=== PATIENT | male | born 1980 | race Caucasian/White ===

== ENCOUNTER 2020-05-12 11:46 | Day surgery (SDC) | payer OTHER ==
[~2020-05-12] VITALS: Ht 180.3 cm; Wt 100.0 kg
[~2020-05-12 11:46] MED LIST: HUMIRA40 MG/0.1 SUB-Q; LIPITOR10 MG PO; NORCO 5-325 TA1 EACH PO; VITAMIN D5000 UNIT PO
--- NOTE | 2020-05-12 13:42 | NUR ---
05/12/20 1342 Christine Maciel 1339- PT ARRIVES TO PACU TALKING. PT REPORTS NO PAIN OR NAUSEA AND FALLS TO SLEEP. RESP EVEN AND UNLABORED. OXYGEN SAT HIGH 90'S TO 100% ON 3L VIA NC.
--- NOTE | 2020-05-13 10:40 | OR ---
[facility] [address] [place], [place] [address] Signed DATE OF OPERATION: 05/12/2020 SURGEON: Jenna Nuno MD PREOPERATIVE DIAGNOSES: 1. Persistent episodic dysphagia and clinical esophageal spasm. 2. Interscapular pain worsened with intake of bread. POSTOPERATIVE DIAGNOSES: Chronic distal esophagitis with moderate-sized hiatal hernia. PROCEDURE: Esophagogastroduodenoscopy with biopsy. ANESTHESIA: Intravenous sedation, fentanyl 100 mcg and Versed 5 mg. INDICATIONS: This 40-year-old white man was referred to me in September for complaints of interscapular pain, epigastric pain, and occasions of dysphagia, mostly to bread and often with associated spasm type symptoms. Due to the COVID pandemic and other issues, delay of his upper endoscopy has been undertaken. The patient takes Tums, which were of no benefit. He has not been on a PPI medication. He is admitted at this time to undergo upper endoscopy to better characterize the problem specifically to assess for peptic disease. He understands the risks of bleeding, infection, and perforation related to upper endoscopy and wished to proceed. FINDINGS: Distal esophagitis was noted with a small Schatzki's ring. There was no evidence of the eosinophilic esophagitis endoscopically. A moderate-sized hiatal hernia was noted as well. Stomach and duodenum were normal. CLOtest was negative 15 minutes post procedure. DESCRIPTION OF PROCEDURE: The patient was brought to the endoscopy suite and placed in the lateral decubitus position after undergoing topical lidocaine hypopharyngeal anesthesia. He was given intravenous sedation to the point of slurred speech and nystagmus with full cardiopulmonary monitoring. A bite block was placed. An Olympus video upper endoscope was passed in the hypopharynx. The vocal cords were visualized and found to be normal. The scope was advanced to the esophagus throughout its length, it was normal except in Electronically Signed By: JENNA NUNO MD 05/13/20 1040 PATIENT NAME: DOUGLAS CLAUDIO OPERATIVE REPORT DATE OF : 80 REPORT #: [id number] PHYSICIAN: JENNA NUNO MD PCP: GUILLERMINA ZAVALETA PA-C REPORT IS CONFIDENTIAL AND NOT TO BE RELEASED WITHOUT AUTHORIZATION [facility] [address], [place] [address] Signed the distal portion where there was mild chronic inflammatory change and a small Schatzki's ring. Scope was passed into the stomach without impediment. The stomach including the antrum showed normal rugal folds and motility. The pylorus was normal, scope was passed through into the duodenum, which was normal. Biopsies were taken of the duodenum to assess for celiac disease. The scope was withdrawn. A biopsy was then taken of the antrum for both KANE and pathologic testing. Retroflexed view showed a moderate-sized hiatal hernia. The scope was withdrawn to the distal esophagus allowing for multiple biopsies there. There was no evidence of Bentley epithelium. The scope was withdrawn and biopsies then taken of midesophagus to assess for eosinophilic esophagitis. Further withdrawal showed no other abnormality. The scope was removed. The patient was taken to the recovery room in good condition. CONCLUDING DIAGNOSIS: Esophagitis related to hiatal hernia. PLAN: We will prescribe Prilosec 20 mg p.o. daily and assess its clinical result. He will return to see me in approximately 6-8 weeks. Jenna Nuno MD JM/MODL /[id number] cc: Guillermina Zavaleta PA-C Copies: GUILLERMINA ZAVALETA PA-C ~ Electronically Signed By: JENNA NUNO MD 05/13/20 1040 PATIENT NAME: DOUGLAS CLAUDIO OPERATIVE REPORT DATE OF : 80 REPORT #: [id number] PHYSICIAN: JENNA NUNO MD PCP: GUILLERMINA ZAVALETA PA-C REPORT IS CONFIDENTIAL AND NOT TO BE RELEASED WITHOUT AUTHORIZATION
--- NOTE | 2020-05-15 12:54 | PATH ---
[facility] [address] [facility] [place] [address] Signed SPECIMEN(S): A DUODENUM SPECIMEN(S): B ANTRUM/PYLORUS SPECIMEN(S): C LOWER ESOPHAGUS SPECIMEN(S): D MIDDLE ESOPHAGUS SPECIMEN SOURCE: A. DUODENUM B. ANTRUM/PYLORUS C. LOWER ESOPHAGUS D. MIDDLE ESOPHAGUS CLINICAL HISTORY: Esophagogastroduodenoscopy. RUQ pain, esophageal dysphagia, retrosternal pain. MICROSCOPIC DESCRIPTION: Histologic sections of all submitted blocks are examined by light microscopy. These findings, together with the gross examination, support the pathologic diagnosis. FINAL PATHOLOGIC DIAGNOSIS: A. Duodenum: - Benign duodenal mucosa, negative for specific diagnostic abnormality. B. Antrum/pylorus: - Benign gastric-type mucosa, negative for evidence of Helicobacter organisms on routine HE stained sections. C. Lower esophagus biopsy: - Benign squamocolumnar junction with rare columnar type mucosa containing a single goblet cell (see comment). - Negative for increased epithelial eosinophils. D. Middle esophagus: - Squamocolumnar junction type mucosa with specialized intestinal (goblet cell) metaplasia. - Negative for increased epithelial eosinophils. - Negative for dysplasia. COMMENT: The specimen submitted as "lower esophagus" may represent the mid esophagus as there is very scant columnar-type epithelium while the specimen D (mid esophagus) contains substantial columnar-type mucosa with the associated specialized intestinal metaplasia. There is no evidence of eosinophilic esophagitis on these sections. The presence of goblet cell metaplasia is noted; however, dysplasia PATIENT NAME: DOUGLAS CLAUDIO PATHOLOGY DATE OF : [birth year] REPORT #: [id number] PHYSICIAN: SWATI PATHOLOGY PCP: BLANCA MERINO PA-C REPORT IS CONFIDENTIAL AND NOT TO BE RELEASED WITHOUT AUTHORIZATION [facility] [address] [place], [place] [address] Signed is not identified. JVR:[facility]:C2NR GROSS DESCRIPTION: Four specimens are received in four containers, labeled "AO." A. The specimen, labeled "AO, 1," and designated on the requisition "duodenum," is received in formalin and consists of one sutton soft tissue fragment that measures 0.3 cm in greatest dimension. The specimen is entirely submitted in cassette (A1). B. The specimen, labeled "AO, 2," and designated on the requisition "antrum/pylorus," is received in formalin and consists of two sutton soft tissue fragments that measure 0.2-0.3 cm in greatest dimension. The specimen is entirely submitted in cassette (B1). C. The specimen, labeled "AO, 3," and designated on the requisition "lower esophagus," is received in formalin and consists of five sutton soft tissue fragments that measure 0.3-0.4 cm in greatest dimension. The specimen is entirely submitted in cassette (C1). D. The specimen, labeled "AO, 4," and designated on the requisition "middle esophagus," is received in formalin and consists of scanty sutton soft tissue fragments that measure 0.3 x 0.2 x 0.1 cm in aggregate. The specimen is filtered, inked with eosin, and entirely submitted in cassette (D1). AT (under the direct supervision of a pathologist) The Gross Description was prepared using a voice recognition system. The report was reviewed for accuracy; however, sound-alike word errors, addition and/or deletions may occur. If there is any question about this report, please contact Client Services. PERFORMING LABORATORY: The technical component was performed by [facility], [address] [place] [id number] (Client Service Representative: Rose Cohen MD; CLIA# [id number]). The professional interpretation was performed by [facility], [facility], [address] [place] [address]. Diagnostician: Alexi Del Castillo MD Pathologist Electronically Signed 05/15/2020 Copies: PATIENT NAME: DOUGLAS CLAUDIO PATHOLOGY DATE OF : 80 REPORT #: [id number] PHYSICIAN: SWATI LUND PCP: BLANCA MERINO PA-C REPORT IS CONFIDENTIAL AND NOT TO BE RELEASED WITHOUT AUTHORIZATION [facility] [address] [facility] [place] [place] [address] Signed ~ PATIENT NAME: ANTIONEEDWINADOUGLAS MARIA PATHOLOGY DATE OF : 80 REPORT #: [id number] PHYSICIAN: SWATI LUND PCP: BLANCA MERINO PA-C REPORT IS CONFIDENTIAL AND NOT TO BE RELEASED WITHOUT AUTHORIZATION
== END 2020-05-12 14:20 | disposition home or self-care (01) ==
LOC: OPS 11:46 → DS 11:46 → OPS 13:00 → DS 13:00 → OPS 14:20
PROVIDERS: ATTEND Surgery
PROC: 0DB68ZX Excision of Stomach, Via Natural or Artificial Opening Endoscopic, Diagnostic (ICD-10-PCS; 2020-05-12)
PROC: 0DB28ZX Excision of Middle Esophagus, Via Natural or Artificial Opening Endoscopic, Diagnostic (ICD-10-PCS; 2020-05-12)
PROC: 0DB38ZX Excision of Lower Esophagus, Via Natural or Artificial Opening Endoscopic, Diagnostic (ICD-10-PCS; 2020-05-12)
PROC: 0DB98ZX Excision of Duodenum, Via Natural or Artificial Opening Endoscopic, Diagnostic (ICD-10-PCS; principal; 2020-05-12 13:00)
DX: K20.90 Esophagitis, unspecified without bleeding (principal); K44.9 Diaphragmatic hernia without obstruction or gangrene; K22.2 Esophageal obstruction; K22.70 Barrett's esophagus without dysplasia; L40.9 Psoriasis, unspecified; E78.5 Hyperlipidemia, unspecified
CPT/HCPCS: 88305; 99153; G0500; J2250; J3010; J7121

== ENCOUNTER 2023-06-09 05:58 | Day surgery (SDC) | payer OTHER ==
[~2023-06-09] VITALS: Ht 180.3 cm; Wt 100.0 kg
[~2023-06-09 05:58] MED LIST changes: +CIMZIA400 MG SUB-Q; +LACTATED RINGER'S 1,000 ML IV SCH; +OMEPRAZOLE20 MG PO; +STRESS FORMULA1 EAC8 PO; +VIT D2-K1 20-1259 ML PO
[2023-06-09 06:10] VITALS: BP 124/69
[2023-06-09] MEDS ORDERED: ECHINACEA EXTR125 MG PO (06:13)
[2023-06-09] MEDS ORDERED: COSENTYX P150 MG/11 SUB-Q (06:14)
[2023-06-09] MEDS ORDERED: LIDOCAINE HCL 1% 5 ML SDV INJ ONE (07:00)
[2023-06-09] MEDS ORDERED: CEFAZOLIN SODIUM 2 GM/20 ML SYR IV SCH (07:00)
[2023-06-09] MEDS ORDERED: IBLOOD GLUCOSE TEST STRIP 1 EA TEST VI PRN ×2 (07:00→08:15)
[2023-06-09] MEDS ORDERED: HEParin SOD (PORCINE) 5,000 UNIT/0.5 ML SYR SUB-Q SCH (07:00)
[2023-06-09] MEDS ORDERED: fentaNYL citrate 250 MCG/5 ML VIAL ONE (07:03)
[2023-06-09] MEDS ORDERED: LIDOCAINE HCL 2% 5 ML SDV ONE (07:03)
[2023-06-09] MEDS ORDERED: DEXAMETHASONE SOD PHOS 4 MG/ML VIAL ONE (07:03)
[2023-06-09] MEDS ORDERED: KETOROLAC TROMETHAMINE 30 MG/ML VIAL ONE (07:03)
[2023-06-09] MEDS ORDERED: MIDAZOLAM HCL 2 MG/2 ML VIAL ONE (07:03)
[2023-06-09] MEDS ORDERED: ACETAMINOPHEN 1,000 MG/100 ML VIAL ONE (07:03)
[2023-06-09] MEDS ORDERED: ondansetron HCL 4 MG/2 ML VIAL ONE (07:03)
[2023-06-09] MEDS ORDERED: propofoL 200 MG/20 ML VIAL ONE (07:03)
--- NOTE | 2023-06-09 07:20 | NUR ---
ROUNDS. PT AND SLATE HANDLER EXHIBIT SITUATIONALLY APPROPRIATE RESPONSES; EXPRESS CONFIDENCE IN CARE; DECLINE AUDIBLE PRAYER IN ROOM. PROVIDED NUTRITION MANAGER EDUCATION; PROVIDED HOSPITALITY; PROVIDED SILENT PRAYER.
[2023-06-09] MEDS ORDERED: NALOXONE HCL 0.4 MG SYR IV PRN (08:15)
[2023-06-09] MEDS ORDERED: PROCHLORPERAZINE EDISYLATE 10 MG/2 ML VIAL IV PRN (08:15)
[2023-06-09] MEDS ORDERED: ondansetron HCL 4 MG/2 ML VIAL IV PRN (08:15)
[2023-06-09] MEDS ORDERED: droPERidol 5 MG/2 ML VIAL IV PRN (08:15)
[2023-06-09] MEDS ORDERED: HYDROmorphone HCL 1 MG/ML SYR IV PRN (08:15)
[2023-06-09] MEDS ORDERED: fentaNYL citrate 100 MCG/2 ML VIAL IV PRN (08:15)
[2023-06-09] MEDS ORDERED: LACTATED RINGER'S 1,000 ML IV ONE (08:26)
[2023-06-09] MEDS ORDERED: OXYCODONE/APAP 7.5/325 TAB PO PRN (09:45)
[2023-06-09] MEDS ORDERED: ACETAMINOPHEN500 MG PO (09:45)
[2023-06-09] MEDS ORDERED: OXYCODON-ACETA1 EAC2 PO (09:45)
[2023-06-09] MEDS ORDERED: LACTATED RINGER'S 1,000 ML IV SCH (09:45)
[2023-06-09] MEDS ORDERED: ACETAMINOPHEN 500 MG TAB PO PRN (09:45)
[2023-06-09] MEDS ORDERED: IBUPROFEN600 MG PO (09:45)
[2023-06-09] MEDS ORDERED: IBUPROFEN 600 MG TAB PO PRN (09:45)
[2023-06-09 09:54] VITALS: BP 121/53
--- NOTE | 2023-06-09 09:57 | NUR ---
LAYLA 0955: PT IS BACK TO DS FROM PACU. HE HAS RETURNED TO HIS BASELINE. HE HAS APPLE SAUCE, WATER, AND COFFEE ON BEDSIDE TABLE. CALL LIGHT WITHIN REACH. HE IS REQUESTING YOGURT. DC CRITERIA IS REVIEWED.
--- NOTE | 2023-06-09 10:14 | NUR ---
06/09/23 Heidy4 Noy Kim 0925- PT PRESENTS TO PACU, SEMI DOSS POSITION. OPA IN PLACE, REQUIRING JAW THRUST TO MAINTAIN AIRWAY, O2 AT 6L PER MASK. PT NON REACTIVE TO STIMULUS, ALL MONITORS IN PLACE. PT HAS DRESSING IN PLACE RIGHT GROIN, ABD SOFT NON DISTENDED. 0930- PT REACTIVE TO VERBAL AND TACTILE STIMULUS. FOLLOWS COMMANDS TO REMOVE OPA. O2 REMAINS IN PLACE, PT OPENS EYES SLIGHTLY, REORIENTED TO TIME AND PLACE. 0931- PT REMOVES O2 TO ITCH FACE, WILL LEAVE ON ROOM AIR. PT THEN FALLS BACK TO SLEEP. WILL CONTINUE TO MONITOR. 0945- PT WAKES EASILY TO VERBAL STIMULI, REPORTS PAIN IS 1-2/10, TOLERABLE. DENIES NAUSEA. STATES "I'M STARVING". PLAN TO TAKE PT BACK TO DAY SURGERY. PT ENCOURAGED TO DEEP BREATH AND COUGH AND EDUCATED ON SPLINTING GROIN INCISION. 0955- PT BACK TO DAY SURGERY VIA BED. ALERT BUT DROWSY. ANSWERS QUESTIONS APPROPRIATELY. LR CONTINUES TO INFUSE TO RFA IV. NO SIGNS OF DISTRESS. DRESSING IN PLACE AND ASSESSED WITH BARRETT HESS. REPORT TO BARRETT HESS AT BEDSIDE, CARE OF PT TURNED OVER AT THIS TIME.
[2023-06-09 10:54] VITALS: BP 126/65
--- NOTE | 2023-06-09 10:55 | NUR ---
LE 1050: PT IS TOLERATING LIQUIDS, APPLE SAUCE, AND YOGURT. HE IS HELPED UP OOB WITH STAND BY ASSIST TO THE BATHROOM. WHERE HE IS ABLE TO VOID DARK YELLOW URINE, 200ML. LE 1055: HE INDICATES THAT HE IS READY TO GO HOME.
--- NOTE | 2023-06-09 11:11 | NUR ---
LE 1055: PT AND ARE GIVEN VERBAL AND WRITTEN DC INSTRUCTIONS. THEY BOTH VERBALIZE UNDERSTANDING. QUESTIONS ARE ASKED AND ANSWERED. PT IS EDUCATED ON HOW TO BEST DRESS HIMSELF AND TO OPEN HIS CURTAIN WHEN READY. LE 1105: PT IS TAKEN TO PERSONAL VEHICLE VIA WC. HE IS ABLE TO TRANSFER HIMSELF FROM WC TO PERSONAL VEHICLE.
--- NOTE | 2023-06-12 12:16 | OR ---
[facility] [address] [place], [place] [address] Signed DATE OF OPERATION: 06/09/2023 SURGEON: Jenna Nuno MD PREOPERATIVE DIAGNOSIS: Recurrent right inguinal hernia (clinical diagnosis). POSTOPERATIVE DIAGNOSIS: Largely intact previous mesh repair with small internal ring defect. PROCEDURES: 1. Groin exploration with mobilization of cord. Full examination of the inguinal floor. 2. Closure of internal ring defect with interrupted 2-0 Prolene. 3. Exploration for femoral hernia (negative). ANESTHESIA: General LMA, Reagan Antony, OVERLOCK SEWING MACHINE OPERATOR and local 10 mL of 0.25% Marcaine with epinephrine. INDICATION: This 43-year-old white man is a patient of FELIBERTO Contreras. He was referred with presumed recurrent right inguinal hernia. He underwent inguinal hernia repair by Dr. Silas Johnson in 2015, as well as umbilical hernia in 2021. The patient had noted pain in the right groin. Palpation of the area described possible hernia. He had no obstructive symptoms, specifically no constipation, urinary outlet obstruction, or other problem. He was noted in May of this year to have testicular pain and an ultrasound performed to assess for hernia. Clinical examination showed some tenderness in the right groin, somewhat lateral in the incision, though the patient describe medial pain and bulge. Review of operative note from 2015 showed implantation of a Ventralex mesh 6.4 cm in an underlay technique was then undertaken. He is admitted at this time to undergo exploration of the groin, repair of presumed recurrent hernia and other indicated procedures. FINDINGS: As expected, external oblique was densely adherent to the underlying cord and other structures. It was freed from the cord structures and underlying the soft tissue without impediment to the cord or its function or vascular supply. The cord was mobilized from the floor well. The mesh appeared to extend laterally outside the cord and was well intact. Iliohypogastric nerve was identified and not encumbered by the mesh. The floor of the canal itself was largely intact related to the repair. At the internal ring, was a slight defect no more than the tip of the finger. Whether this Electronically Signed By: JENNA NUNO MD 06/12/23 1216 PATIENT NAME: DOUGLAS CLAUDIO OPERATIVE REPORT DATE OF : 80 REPORT #: [id number] PHYSICIAN: JENNA NUNO MD PCP: GUILLERMINA ZAVALETA PA-C REPORT IS CONFIDENTIAL AND NOT TO BE RELEASED WITHOUT AUTHORIZATION [facility] [address] [place], [place] [address] Signed accounts for his symptoms or not is uncertain. The internal ring was plicated and the shelving edge of Poupart's ligament and the tendon of the transversus abdominis with the incorporated mesh was secured as well. Exploration was undertaken inferior to the inguinal ligament to assess for a femoral hernia. There was no evidence of femoral hernia at this point. DESCRIPTION OF PROCEDURE: The patient was brought to the operating room, given a general LMA type anesthetic. Preoperative antibiotic Ancef was given. Sequential compression device stockings were used. The abdomen was clipped and prepared with a chlorhexidine solution and draped sterilely. An incision was made in the previous incision. Dissection was carried through the subcutaneous scar tissue down to the external oblique fascia. This was incised with great care opening the inguinal canal and identifying the cord structures. They were freed from the surrounding soft tissue with meticulous care using blunt and electrocautery dissection. The mesh itself appeared to be well incorporated into the floor medially. There was no typical medial defect. Care was taken to mobilize the floor with all due care and avoid encumbrance of vascular supply both venous and arterial. The external oblique was opened more laterally as that was the patient's complaint. This allowed for complete freeing of the external oblique and reflecting it medially and laterally without problem. An iliohypogastric nerve was identified and unharmed and not incorporated by mesh. Good incorporation of the mesh was noted. There was certainly no sign of infection. With meticulous care, the cord structures were freed from the floor more fully in the lateral aspect and the internal ring more fully dissected free. This did show a small defect there about the tip of the index finger which was not big. Whether this was enough to cause the symptoms is uncertain. The internal ring was plicated and repaired with interrupted 2-0 Prolene suture. Plication was extended more medially securing the inguinal ligament remnants to the tendon of the transversus abdominis, which was incorporated with mesh. On the possibility of a femoral hernia, dissection was taken inferior to the inguinal ligament, identifying by palpation of the femoral artery. The area between the femoral vein and the pubis itself was identified, showing no sign of defect to account for his problem, specifically no femoral hernia. Plans were then made for closure. 10 mL of 0.25% Marcaine with epinephrine was injected locally. The cord was replaced into the canal, which had been encircled with a [place] drain. The external oblique reapproximated with 2-0 Vicryl suture. Hero layer was similarly reapproximated and the skin closed with running subcuticular 3-0 Vicryl. Steri-Strips were applied as was an Acticoat dressing. The patient was ultimately extubated and transferred to the recovery room in good condition having suffered no complication. Sponge, needle, and instrument counts were reported as correct x3. Electronically Signed By: JENNA NUNO MD 06/12/23 1216 PATIENT NAME: DOUGLAS CLAUDIO OPERATIVE REPORT DATE OF : 80 REPORT #: [id number] PHYSICIAN: JENNA NUNO MD PCP: GUILLERMINA ZAVALETA PA-C REPORT IS CONFIDENTIAL AND NOT TO BE RELEASED WITHOUT AUTHORIZATION [address] [place], [place] [address] Signed MD RHETT Morales/EARL /[id number] cc: Guillermina Zavaleta PA-C Copies: GUILLERMINA ZAVALETA PA-C ~ Electronically Signed By: JENNA NUNO MD 06/12/23 1216 PATIENT NAME: DOUGLAS CLAUDIO OPERATIVE REPORT DATE OF : 80 REPORT #: [id number] PHYSICIAN: JENNA NUNO MD PCP: GUILLERMINA ZAVALETA PA-C REPORT IS CONFIDENTIAL AND NOT TO BE RELEASED WITHOUT AUTHORIZATION
== END 2023-06-09 11:05 | disposition home or self-care (01) ==
LOC: DS 05:58
PROVIDERS: ATTEND Surgery
PROC: 0YQ50ZZ Repair Right Inguinal Region, Open Approach (ICD-10-PCS; principal; 2023-06-09 07:30)
DX: K40.91 Unilateral inguinal hernia, without obstruction or gangrene, recurrent (principal); R13.19 Other dysphagia; K64.4 Residual hemorrhoidal skin tags; Z88.8 Allergy status to other drugs, medicaments and biological substances; Z79.899 Other long term (current) drug therapy
CPT/HCPCS: 00830; C1781; J0131; J0690; J1100; J1644; J1885; J2001; J2250; J2405; J2704; J3010; J7121